=== PATIENT | female | born 1980 | race Caucasian/White ===

== ENCOUNTER 2022-06-02 17:28 | Emergency (ER) | payer MEDICAID, SELFPAY ==
--- NOTE | ~2022-06-02 | XR_ITS ---
EXAMINATION: XR CHEST CLINICAL INFORMATION: Shortness of breath. COMPARISON: None TECHNIQUE: 2 views of the chest were obtained. FINDINGS: Normal appearance of the cardiomediastinal silhouette. Focal patchy airspace opacities in the right lower lobe. No pleural effusion or pneumothorax. No acute osseous abnormalities. XR/XR chest 2V IMPRESSION: Patchy airspace opacities in the right lower lobe concerning for a focal pneumonia in the appropriate clinical context. Recommend a follow-up imaging after treatment.
[2022-06-02 18:26] VITALS: BP 115/70; PULSE 117; RESP 18; TEMP 36.8; O2SAT 97; BMI 19.6
--- NOTE | 2022-06-02 18:26 | ED_ITS ---
HPI - Chest Pain General Chief Complaint: Dyspnea Stated Complaint: Chest pressure/ SOB Time Seen by Provider: 06/02/22 21:53 Related Data Previous Rx's Medication Instructions Recorded levofloxacin 750 mg tablet 750 mg PO DAILY #7 tabs 06/02/22 Allergies Allergy/AdvReac Type Severity Reaction Status Date / Time No Known Allergies Allergy Verified 06/02/22 18:28 [facility] Social History Social History Advance Directives: No Physical Exam Vital Signs: Vital Signs: Last Vital Signs Temp 98.3 F 06/02/22 23:11 Pulse 109 H 06/02/22 23:11 Resp 18 06/02/22 23:11 BP 129/78 06/02/22 23:11 Pulse Ox 100 06/02/22 23:11 O2 Del Method 06/02/22 23:11 BMI result Body Mass Index 19.6 Course Course Course Narrative: RME-- 41yo F with no significant past medical history c/o dry cough x2 weeks now with worsening SOB since yesterday. Admits cough has resolved now with still with residual SOB/chest discomfort. Admits chest discomfort worse with breathing and movement. Denies history of clots, recent travel, oral OCPs, cigarette smoking, fever Patient tachycardic to 117 in triage, Lungs CTA on exam, patient taking shallow breaths secondary to pain. Tenderness is reproducible to right lower ribs, abd omen soft and nontender EKG, labs, CXR, COVID-19/flu/RSV testing ordered Medications Administered Discontinued Medications Generic Name Dose Route Start Last Admin Trade Name Cristóbal PRN Reason Stop Dose Admin Levofloxacin 750 mg 06/02/22 22:33 06/02/22 23:36 Levofloxacin 750 Mg Tablet PO 06/02/22 22:34 750 mg ONCE ONE Administration Medical Decision Making Lab Data Result Diagrams: 06/02/22 18:51 06/02/22 18:52 Labs: Lab Results 06/02/22 06/02/22 06/02/22 Range/Units 18:51 18:51 18:51 WBC 20.2 H (4.8-10.8) X10*3/uL RBC 4.38 (4.20-5.50) X10*6/uL Hgb 12.1 (12.0-16.0) g/dl Hct 36.1 L (37.0-47.0) % MCV 82.4 (80.0-98.0) fL MCH 27.6 (27.0-33.0) pg MCHC 33.5 (31.0-35.0) g/dl RDW 12.3 (11.0-16.0) % Plt Count 420 H (160-400) X10*3/uL MPV 10.0 (9.4-12.3) fL Immature Gran % (Auto) 0.4 (0.0-0.4) % Neut % (Auto) 88.0 H (45-73) % Lymph % (Auto) 6.3 L (20-40) % [place] % (Auto) 5.1 (2-11) % Eos % (Auto) 0.0 (0-4) % Baso % (Auto) 0.2 (0-2) % Lymph # (Auto) 1.3 (1.2-4.9) X10*3/uL [place] # (Auto) 1.0 (0.1-1.2) X10*3/uL Eos # (Auto) 0.0 (0.0-0.4) X10*3/uL Baso # (Auto) 0.0 (0.0-0.2) X10*3/uL Abs Immat Gran (auto) 0.08 H (0.00-0.03) X10*3/uL Absolute Neuts (auto) 17.8 H (2.0-8.3) x10*3/uL Absolute Nucleated RBC 0.000 (0.0-0.012) X10*3/uL Nucleated RBC % (auto) 0.0 (0.0-0.2) /100WBC PT 12.5 (10.0-13.1) SEC INR 1.1 (0.9-1.1) D-Dimer High Sensitivty 177 NG/ML Sodium (135-145) mmol/L Potassium (3.3-5.1) mmol/L Chloride (96-108) mmol/L Carbon Dioxide (22-29) mmol/L Anion Gap (12-20) BUN (9-16) mg/dL Creatinine (0.5-1.4) mg/dL Estim Creat Clear Calc Estimated GFR Random Glucose (60-115) mg/dL Calcium (8.4-10.2) mg/dL Magnesium (1.6-2.6) mg/dL Total Bilirubin (0.0-1.0) mg/dL Direct Bilirubin (0.0-0.5) mg/dL AST (5-31) U/L ALT (0-31) U/L Alkaline Phosphatase (39-117) U/L Troponin I High Sens < 3.5 (<3.5-17.0) ng/L B-Natriuretic Peptide (<100) pg/mL Total Protein (6.5-8.0) g/dL Albumin (3.5-5.0) g/dL Influenza Type A (PCR) (Negative) Influenza Type B (PCR) (Negative) RSV RNA Qual (PCR) (Negative) SARS-CoV-2 RNA (RT-PCR) (Negative) 06/02/22 06/02/22 06/02/22 Range/Units 18:51 18:52 18:52 WBC (4.8-10.8) X10*3/uL RBC (4.20-5.50) X10*6/uL Hgb (12.0-16.0) g/dl Hct (37.0-47.0) % MCV (80.0-98.0) fL MCH (27.0-33.0) pg MCHC (31.0-35.0) g/dl RDW (11.0-16.0) % Plt Count (160-400) X10*3/uL MPV (9.4-12.3) fL Immature Gran % (Auto) (0.0-0.4) % Neut % (Auto) (45-73) % Lymph % (Auto) (20-40) % [place] % (Auto) (2-11) % Eos % (Auto) (0-4) % Baso % (Auto) (0-2) % Lymph # (Auto) (1.2-4.9) X10*3/uL [place] # (Auto) (0.1-1.2) X10*3/uL Eos # (Auto) (0.0-0.4) X10*3/uL Baso # (Auto) (0.0-0.2) X10*3/uL Abs Immat Gran (auto) (0.00-0.03) X10*3/uL Absolute Neuts (auto) (2.0-8.3) x10*3/uL Absolute Nucleated RBC (0.0-0.012) X10*3/uL Nucleated RBC % (auto) (0.0-0.2) /100WBC PT (10.0-13.1) SEC INR (0.9-1.1) D-Dimer High Sensitivty NG/ML Sodium 136 (135-145) mmol/L Potassium 4.0 (3.3-5.1) mmol/L Chloride 102 (96-108) mmol/L Carbon Dioxide 26 (22-29) mmol/L Anion Gap 12 (12-20) BUN 14 (9-16) mg/dL Creatinine 0.69 (0.5-1.4) mg/dL Estim Creat Clear Calc 87.1 Estimated GFR > 60 Random Glucose 117 H (60-115) mg/dL Calcium 9.3 (8.4-10.2) mg/dL Magnesium 1.9 (1.6-2.6) mg/dL Total Bilirubin 1.0 (0.0-1.0) mg/dL Direct Bilirubin 0.3 (0.0-0.5) mg/dL AST 15 (5-31) U/L ALT 11 (0-31) U/L Alkaline Phosphatase 74 (39-117) U/L Troponin I High Sens (<3.5-17.0) ng/L B-Natriuretic Peptide 12 (<100) pg/mL Total Protein 7.1 (6.5-8.0) g/dL Albumin 4.5 (3.5-5.0) g/dL Influenza Type A (PCR) NEGATIVE (Negative) Influenza Type B (PCR) NEGATIVE (Negative) RSV RNA Qual (PCR) NEGATIVE (Negative) SARS-CoV-2 RNA (RT-PCR) NEGATIVE (Negative) Discharge Plan Discharge Clinical Impression: Community acquired pneumonia Patient Disposition: Home, Self-Care Instructions: Community Acquired Pneumonia (ED) Prescriptions: New levofloxacin 750 mg tablet 750 mg PO DAILY Qty: 7 0RF Stand Alone Forms: Work/School Release Interventions: ED Discharge Assessment Last Done: 06/02/22 23:38 Discharge Date/Time: 06/02/22 23:39
--- NOTE | 2022-06-02 18:28 | ECG_ITS ---
Test Reason : CHEST PRESSURE Blood Pressure : / mmHG Vent. Rate : 113 BPM Atrial Rate : 113 BPM P-R Int : 144 ms QRS Dur : 076 ms QT Int : 320 ms P-R-T Axes : 063 065 -03 degrees QTc Int : 438 ms Sinus tachycardia Nonspecific ST and T wave abnormality Abnormal ECG No previous ECGs available Referred By: Miya Jacobo Electronically Signed By:ROLF GARCIA
[2022-06-02 18:56] LABS: MANUAL DIFF FLAG NO
[2022-06-02 18:58] LABS: Basophils Percent Auto 0.2 % (0-2); Hematocrit 36.1 % (37.0-47.0); Hemoglobin 12.1 g/dl (12.0-16.0); Imm Gran Abs Auto 0.08 X10*3/uL (0.00-0.03); Imm Gran Pct Auto 0.4 % (0.0-0.4); Lymphocytes Absolute Auto 1.3 X10*3/uL (1.2-4.9); Lymphocytes Percent Auto 6.3 % (20-40); Mean Corpuscular HGB Conc 33.5 g/dl (31.0-35.0); Mean Corpuscular Hemoglobin 27.6 pg (27.0-33.0); Mean Corpuscular Volume 82.4 fL (80.0-98.0); Monocytes Percent Auto 5.1 % (2-11); Neutrophils Absolute Auto 17.8 x10*3/uL (2.0-8.3); Platelet Count 420 X10*3/uL (160-400); Red Blood Count 4.38 X10*6/uL (4.20-5.50); Red Cell Distribution Width 12.3 % (11.0-16.0); White Blood Count 20.2 X10*3/uL (4.8-10.8)
[2022-06-02 19:03] LABS: INTERNATIONAL NORM RATIO 1.1 (0.9-1.1); Prothrombin Time 12.5 SEC (10.0-13.1)
[2022-06-02 19:04] LABS: D Dimer High Sensitivity 177 NG/ML
[2022-06-02 19:15] LABS: Alanine Aminotransferase 11 U/L (0-31); Albumin Level 4.5 g/dL (3.5-5.0); Alkaline Phosphatase 74 U/L (39-117); Anion Gap 12 (12-20); Aspartate Amino Transferase 15 U/L (5-31); Bilirubin Direct 0.3 mg/dL (0.0-0.5); Blood Urea Nitrogen 14 mg/dL (9-16); Calcium 9.3 mg/dL (8.4-10.2); Carbon Dioxide 26 mmol/L (22-29); Chloride 102 mmol/L (96-108); Creatinine Clr Calc Pharmacy 87.1; Estimated Glomerular Filt Rate > 60; Glucose Random 117 mg/dL (60-115); Magnesium 1.9 mg/dL (1.6-2.6); Sodium 136 mmol/L (135-145); Total Protein 7.1 g/dL (6.5-8.0)
[2022-06-02 19:20] LABS: B Type Natriuretic Peptide 12 pg/mL (<100)
[2022-06-02 19:24] LABS: Troponin-I High Sensitivity < 3.5 ng/L (<3.5-17.0)
[2022-06-02 19:35] LABS: Influenza A PCR NEGATIVE (Negative); Influenza B PCR NEGATIVE (Negative); Resp Syncy Virus RNA Qual PCR NEGATIVE (Negative); SARS COV2 PCR INHOUSE NEGATIVE (Negative)
--- NOTE | 2022-06-02 22:20 | ED.SOB ---
HPI - SOB/Dyspnea General Chief Complaint: Dyspnea Stated Complaint: Chest pressure/ SOB Time Seen by Provider: 06/02/22 21:53 Source: patient Mode of arrival: ambulatory Limitations: no limitations History of Present Illness HPI Narrative: 41-year-old female came in for evaluation of coughing and right-sided chest pain for the past 2 weeks the pain is getting worse today, coughing with production of clear sputum, no fever or chills, right-sided chest pain which worsening with taking a deep breath or coughing. No recent travel or prolonged expiration, no history of PE or DVT, no history of chest wall injury or trauma. Related Data Previous Rx's Medication Instructions Recorded levofloxacin 750 mg tablet 750 mg PO DAILY #7 tabs 06/02/22 Allergies Allergy/AdvReac Type Severity Reaction Status Date / Time No Known Allergies Allergy Verified 06/02/22 18:28 Review of Systems Review of Systems: All other systems are reviewed and are negative Constitutional: Reports as per HPI and Reports no additional constitutional complaints Eyes: Reports as per HPI and Reports no additional eye complaints Reports system reviewed and no additional complaints, except as documented Cardiovascular: Reports as per HPI and Reports no additional cardiovascular complaints Respiratory: Reports as per HPI and Reports no additional respiratory complaints Gastrointestinal: Reports as per HPI and Reports no additional gastrointestinal complaints Genitourinary: Reports no additional female genitourinary complaints Musculoskeletal: Reports no additional musculoskeletal complaints Skin/Breast: Reports system reviewed and no additional complaints, except as docu Psychiatric: Reports no additional psychiatric complaints Endocrine: Reports no additional endocrine complaints Hematologic/Lymphatic: Reports no additional hematologic/lymphatic complaints Allergic/Immunologic: Reports no additional allergic/immunologic complaints Reports system reviewed and no additional complaints, except as documented and Reports Abnormal speech present ON LICENSE OF [facility] Social History Social History Advance Directives: No Physical Exam Vital Signs: Vital Signs: Last Vital Signs Temp 98.3 F 06/02/22 23:11 Pulse 109 H 06/02/22 23:11 Resp 18 06/02/22 23:11 BP 129/78 06/02/22 23:11 Pulse Ox 100 06/02/22 23:11 O2 Del Method 06/02/22 23:11 BMI result Body Mass Index 19.6 Vital signs have been reviewed as appeared to be correct. Blood pressure normal. Heart rate elevated. Respiration rate normal. Temperature normal. Oxygen saturation normal. Appearance: Alert. Oriented X3. No acute distress. Head: Normal external exam. Normocephalic. Atraumatic. No [place] signs noted. No raccoon eyes noted Eyes: PERRLA. EOMI. Conjunctiva and sclera normal. Eyelids normal. ENT: TM's Normal. Pharynx normal. Uvula midline. Moist mucous membranes. No trismus noted. No drooling noted. No muffled voice noted. Neck: Normal inspection. Neck supple. FROM. No adenopathy. Thyroid Normal. No meningeal signs. No neck mass noted. CVS: Normal heart rate and rhythm. Heart sound normal. No murmurs noted. Pulses normal throughout. Respiratory: Decreased breathing sound on the right upper lung field, was crackers in the right upper lungs. Abdomen: Soft and nontender. Bowel sounds normal in all 4 quadrants. No distention noted. No organomegaly noted. No visible injury noted. Back: No CVA tenderness. Full range of motion noted. Skin: Skin warm and dry. Normal skin color. Normal skin turgor. No rashes/lesions/lacerations noted. Extremities: No lower extremity edema. Extremities exhibit normal range of motion. Extremities nontender. Neuro: Oriented X 3. Cranial nerve exam: II-XII are grossly intact No motor deficit. No sensory deficit. Reflexes normal. Course Course Course Narrative: 41-year-old female came in with right-sided chest pain and coughing, chest x-ray is consistent with community-acquired pneumonia, patient is tachycardic and has leukocytosis however patient refused to be stock for lactic acid and blood culture patient is insisting to take the oral antibiotic and declining IV antibiotic since she feels okay. Medical Decision Making Differential Diagnosis Differential Diagnoses: The differential diagnosis associated with the presentation includes (RSV, influenza, COVID-19 infection, community-acquired pneumonia, sepsis, severe sepsis.) Lab Data MDM Lab Attestation statement: I reviewed the patient's lab results. Result Diagrams: 06/02/22 18:51 06/02/22 18:52 Labs: Lab Results 06/02/22 06/02/22 06/02/22 Range/Units 18:51 18:51 18:51 WBC 20.2 H (4.8-10.8) X10*3/uL RBC 4.38 (4.20-5.50) X10*6/uL Hgb 12.1 (12.0-16.0) g/dl Hct 36.1 L (37.0-47.0) % MCV 82.4 (80.0-98.0) fL MCH 27.6 (27.0-33.0) pg MCHC 33.5 (31.0-35.0) g/dl RDW 12.3 (11.0-16.0) % Plt Count 420 H (160-400) X10*3/uL MPV 10.0 (9.4-12.3) fL Immature Gran % (Auto) 0.4 (0.0-0.4) % Neut % (Auto) 88.0 H (45-73) % Lymph % (Auto) 6.3 L (20-40) % [place] % (Auto) 5.1 (2-11) % Eos % (Auto) 0.0 (0-4) % Baso % (Auto) 0.2 (0-2) % Lymph # (Auto) 1.3 (1.2-4.9) X10*3/uL [place] # (Auto) 1.0 (0.1-1.2) X10*3/uL Eos # (Auto) 0.0 (0.0-0.4) X10*3/uL Baso # (Auto) 0.0 (0.0-0.2) X10*3/uL Abs Immat Gran (auto) 0.08 H (0.00-0.03) X10*3/uL Absolute Neuts (auto) 17.8 H (2.0-8.3) x10*3/uL Absolute Nucleated RBC 0.000 (0.0-0.012) X10*3/uL Nucleated RBC % (auto) 0.0 (0.0-0.2) /100WBC PT 12.5 (10.0-13.1) SEC INR 1.1 (0.9-1.1) D-Dimer High Sensitivty 177 NG/ML Sodium (135-145) mmol/L Potassium (3.3-5.1) mmol/L Chloride (96-108) mmol/L Carbon Dioxide (22-29) mmol/L Anion Gap (12-20) BUN (9-16) mg/dL Creatinine (0.5-1.4) mg/dL Estim Creat Clear Calc Estimated GFR Random Glucose (60-115) mg/dL Calcium (8.4-10.2) mg/dL Magnesium (1.6-2.6) mg/dL Total Bilirubin (0.0-1.0) mg/dL Direct Bilirubin (0.0-0.5) mg/dL AST (5-31) U/L ALT (0-31) U/L Alkaline Phosphatase (39-117) U/L Troponin I High Sens < 3.5 (<3.5-17.0) ng/L B-Natriuretic Peptide (<100) pg/mL Total Protein (6.5-8.0) g/dL Albumin (3.5-5.0) g/dL Influenza Type A (PCR) (Negative) Influenza Type B (PCR) (Negative) RSV RNA Qual (PCR) (Negative) SARS-CoV-2 RNA (RT-PCR) (Negative) 06/02/22 06/02/22 06/02/22 Range/Units 18:51 18:52 18:52 WBC (4.8-10.8) X10*3/uL RBC (4.20-5.50) X10*6/uL Hgb (12.0-16.0) g/dl Hct (37.0-47.0) % MCV (80.0-98.0) fL MCH (27.0-33.0) pg MCHC (31.0-35.0) g/dl RDW (11.0-16.0) % Plt Count (160-400) X10*3/uL MPV (9.4-12.3) fL Immature Gran % (Auto) (0.0-0.4) % Neut % (Auto) (45-73) % Lymph % (Auto) (20-40) % [place] % (Auto) (2-11) % Eos % (Auto) (0-4) % Baso % (Auto) (0-2) % Lymph # (Auto) (1.2-4.9) X10*3/uL [place] # (Auto) (0.1-1.2) X10*3/uL Eos # (Auto) (0.0-0.4) X10*3/uL Baso # (Auto) (0.0-0.2) X10*3/uL Abs Immat Gran (auto) (0.00-0.03) X10*3/uL Absolute Neuts (auto) (2.0-8.3) x10*3/uL Absolute Nucleated RBC (0.0-0.012) X10*3/uL Nucleated RBC % (auto) (0.0-0.2) /100WBC PT (10.0-13.1) SEC INR (0.9-1.1) D-Dimer High Sensitivty NG/ML Sodium 136 (135-145) mmol/L Potassium 4.0 (3.3-5.1) mmol/L Chloride 102 (96-108) mmol/L Carbon Dioxide 26 (22-29) mmol/L Anion Gap 12 (12-20) BUN 14 (9-16) mg/dL Creatinine 0.69 (0.5-1.4) mg/dL Estim Creat Clear Calc 87.1 Estimated GFR > 60 Random Glucose 117 H (60-115) mg/dL Calcium 9.3 (8.4-10.2) mg/dL Magnesium 1.9 (1.6-2.6) mg/dL Total Bilirubin 1.0 (0.0-1.0) mg/dL Direct Bilirubin 0.3 (0.0-0.5) mg/dL AST 15 (5-31) U/L ALT 11 (0-31) U/L Alkaline Phosphatase 74 (39-117) U/L Troponin I High Sens (<3.5-17.0) ng/L B-Natriuretic Peptide 12 (<100) pg/mL Total Protein 7.1 (6.5-8.0) g/dL Albumin 4.5 (3.5-5.0) g/dL Influenza Type A (PCR) NEGATIVE (Negative) Influenza Type B (PCR) NEGATIVE (Negative) RSV RNA Qual (PCR) NEGATIVE (Negative) SARS-CoV-2 RNA (RT-PCR) NEGATIVE (Negative) Independent Interpretation I performed an independent interpretation of an: Plain X-Ray (Right lower lobe pneumonia) Radiology Impression Discussion of test interpretation with radiology: I have reviewed the radiologist's reading. Discharge Plan Discharge Clinical Impression: Community acquired pneumonia Patient Disposition: Home, Self-Care Instructions: Community Acquired Pneumonia (ED) Prescriptions: New levofloxacin 750 mg tablet 750 mg PO DAILY Qty: 7 0RF Stand Alone Forms: Work/School Release
[2022-06-02 23:11] VITALS: BP 129/78; PULSE 109; RESP 18; TEMP 36.8; O2SAT 100
[2022-06-02] MEDS: levoFLOXacin 750 MG TABLET PO (23:36)
== END 2022-06-02 23:39 | disposition home or self-care (01) ==
PROVIDERS: Physician Assistant; Emergency Provider Emergency Medicine
DX: J18.9 Pneumonia, unspecified organism (principal); R06.02 Shortness of breath; Z20.828 Contact with and (suspected) exposure to other viral communicable diseases
CPT/HCPCS: 0241U; 36415; 71046; 80048; 80076; 83735; 83880; 84484; 85025; 85379; 85610; 93005; 99283; 99284

== ENCOUNTER 2022-08-13 13:13 | Emergency (ER) | payer MEDICAID, SELFPAY ==
--- NOTE | ~2022-08-13 | XR_ITS ---
EXAMINATION: XR CHEST CLINICAL INFORMATION: Fall COMPARISON: 06/02/2022 TECHNIQUE: 2 views of the chest were obtained. FINDINGS: The lungs are well expanded. There is increased right middle lobe consolidation. No pleural effusion or pneumothorax. The cardiomediastinal silhouette is normal in size. No acute osseous abnormality. XR/XR chest 2V IMPRESSION: Increased right middle lobe consolidation which could represent atelectasis or pneumonia.
[2022-08-13 13:19] VITALS: BP 106/86; PULSE 122; RESP 20; TEMP 37.2; BMI 19.6
--- NOTE | 2022-08-13 13:19 | ED_ITS ---
HPI - Chest Pain General Chief Complaint: Upper Respiratory Symptoms <PAIGE Rodriguez - Last Filed: 08/13/22 13:25> Stated Complaint: R lung pain <PAIGE Rodriguez - Last Filed: 08/13/22 13:25> Time Seen by Provider: 08/13/22 15:51 <PAIGE Rodriguez - Last Filed: 08/13/22 13:25> Source: patient <PAIGE Dumont Last Filed: 08/13/22 17:11> Mode of arrival: ambulatory <PAIGE Dumont - Last Filed: 08/13/22 17:11> Limitations: no limitations <PAIGE Dumont Last Filed: 08/13/22 17:11> History of Present Illness HPI narrative: Patient is a 41 year old assigned female at with no reported medical history presenting to the emergency department today with right sided chest pain. Patient states that the last time she had this type of pain and cough, she was diagnosed with pneumonia. Patient denies any dizziness, lightheadedness, abdominal pain, nausea, vomiting, fever, chills, blurry vision, double vision, loss of vision, difficulty breathing, shortness of breath, back pain, night sweats, pain with urination, increased urinary frequency, increased urinary urgency, blood in her urine or stool, syncope or a near syncopal episode, recent trauma or falls, bowel incontinence, bladder incontinence, bowel retention, bladder retention, or any other complaints at this time. <PAIGE Dumont - Last Filed: 08/13/22 17:11> MD complaint: chest pain <PAIGE Dumont - Last Filed: 08/13/22 17:11> Prior episodes: Yes <PAIGE Dumont Last Filed: 08/13/22 17:11> Pain radiation: none <PAIGE Dumont Last Filed: 08/13/22 17:11> Severity: mild <PAIGE Dumont Last Filed: 08/13/22 17:11> Pain scale (0-10): 3 <PAIGE Dumont Last Filed: 08/13/22 17:11> Relieving factors: nothing <PAIGE Dumont - Last Filed: 08/13/22 17:11> Exacerbating factors: nothing <PAIGE Dumont Last Filed: 08/13/22 17:11> Associated symptoms: cough <PAIGE Dumont Last Filed: 08/13/22 17:11> Treatment prior to arrival: none <PAIGE Dumont Last Filed: 08/13/22 17:11> Related Data Home Medications: Previous Rx's Medication Instructions Recorded levofloxacin 750 mg tablet 750 mg PO DAILY #7 tabs 06/02/22 levofloxacin 750 mg tablet 750 mg PO DAILY 7 days #7 tabs 08/13/22 <PAIGE Rodriguez Last Filed: 08/13/22 13:25> Allergies/Adverse Reactions: Allergies Allergy/AdvReac Type Severity Reaction Status Date / Time No Known Allergies Allergy Verified 08/13/22 13:24 <PAIGE Rodriguez Last Filed: 08/13/22 13:25> Review of Systems Constitutional: Constitutional: Reports no additional constitutional complai nts, Denies chills, Denies fever(s) and Denies night sweats <PAIGE Dumont Last Filed: 08/13/22 17:11> Eyes: Eyes: Reports no additional eye complaints, Denies blurry vision, Denies change in vision, Denies diplopia, Denies eye discharge, Denies loss of vision and Denies eye pain <PAIGE Dumont Last Filed: 08/13/22 17:11> ENT: Denies dizziness <PAIGE Dumont Last Filed: 08/13/22 17:11> Cardiovascular: Cardiovascular: Reports no additional cardiovascular complaints, Reports chest pain (right sided), Denies lightheadedness, Denies Loss of Consciousness and Denies dyspnea <PAIGE Dumont Last Filed: 08/13/22 17:11> Respiratory: Respiratory: Reports no additional respiratory complaints, Reports cough and Denies dyspnea <PAIGE Dumont Last Filed: 08/13/22 17:11> Gastrointestinal: Gastrointestinal: Reports no additional gastrointestinal complaints, Denies abdominal pain, Denies melena, Denies hematochezia, Denies change in bowel habits and Denies change in stool character <PAIGE Dumont Last Filed: 08/13/22 17:11> Genitourinary: Genitourinary: Denies hematuria, Denies urinary frequency, Denies dysuria, Denies urinary incontinence, Denies urinary hesitancy and Denies urinary urgency <PAIGE Dumont - Last Filed: 08/13/22 17:11> Musculoskeletal: Musculoskeletal: Reports no additional musculoskeletal complaints, Denies numbness and Denies tingling <PAIGE Dumont - Last Filed: 08/13/22 17:11> Neurologic: Denies dizziness, Denies loss of vision, Denies numbness and Denies tingling <PAIGE Dumont - Last Filed: 08/13/22 17:11> Psychiatric: Psychiatric: Reports no additional psychiatric complaints <PAIGE Dumont - Last Filed: 08/13/22 17:11> Endocrine: Endocrine: Reports no additional endocrine complaints <PAIGE Dumont - Last Filed: 08/13/22 17:11> Hematologic/Lymphatic: Hematologic/Lymphatic: Reports no additional hematologic/lymphatic complaints <PAIGE Dumont - Last Filed: 08/13/22 17:11> Allergic/Immunologic: Allergic/Immunologic: Reports no additional greg rgic/immunologic complaints <PAIGE Dumont - Last Filed: 08/13/22 17:11> PMF Past Medical History Attestation statement: The following information was validated with the patient. <PAIGE Dumont - Last Filed: 08/13/22 17:11> Source: old records reviewed and nursing notes reviewed <PAIGE Dumont - Last Filed: 08/13/22 17:11> Social History Social History: Social History Alcohol intake: former Smoked in Last 30 Days: No Use of substances other than those prescribed or required for medical reasons: No Advance Directives: No Advance Directives Information Provided: No Patient : No <PAIGE Rodriguez - Last Filed: 08/13/22 13:25> Physical Exam Vital Signs: Vital Signs: Last Vital Signs Temp 99.2 F 08/13/22 15:43 Pulse 98 08/13/22 15:43 Resp 16 08/13/22 15:43 BP 105/71 08/13/22 15:43 Pulse Ox 99 08/13/22 15:44 O2 Del Method 08/13/22 15:44 BMI result Body Mass Index 19.6 <PAIGE Rodriguez - Last Filed: 08/13/22 13:25> Vital Signs: Last Vital Signs Temp 99.2 F 08/13/22 15:43 Pulse 98 08/13/22 15:43 Resp 16 08/13/22 15:43 BP 105/71 08/13/22 15:43 Pulse Ox 99 08/13/22 15:44 O2 Del Method 08/13/22 15:44 BMI result Body Mass Index 19.6 <PAIGE Dumont - Last Filed: 08/13/22 17:11> Const: General: cooperative, no acute distress, alert and awake <PAIGE Dumont - Last Filed: 08/13/22 17:11> Nutritional Appearance: well nourished <PAIGE Dumont - Last Filed: 08/13/22 17:11> Orientation/consciousness: patient oriented x3 <PAIGE Dumont - Last Filed: 08/13/22 17:11> Limitations: no limitations <PAIGE Dumont - Last Filed: 08/13/22 17:11> HEENT: Head: Yes normal to inspection and Yes atraumatic <PAIGE Dumont - Last Filed: 08/13/22 17:11> Ears: hearing grossly normal bilaterally and external ears normal <PAIGE Dumont - Last Filed: 08/13/22 17:11> General nose exam: Normal external nose present, no nasal discharge noted and no epistaxis <PAIGE Dumont - Last Filed: 08/13/22 17:11> Face and sinus: Yes normal facial exam, No abrasion and No laceration <PAIGE Dumont - Last Filed: 08/13/22 17:11> Mouth: Normal oral and palatal mucosa present, no drooling and no muffled voice <PAIGE Dumont - Last Filed: 08/13/22 17:11> Eyes: General: appearance normal, both eyes and all related structures <PAIGE Dumont - Last Filed: 08/13/22 17:11> Periorbital: periorbital findings normal <PAIGE Dumont - Last Filed: 08/13/22 17:11> Eyelids: Yes eyelids normal <Anali Ho PA - Last Filed: 08/13/22 17:11> Conjunctivae: conjunctivae normal <Anali Ho, PA - Last Filed: 08/13/22 17:11> Pupils: Equal, round and reactive pupils present <Anali Ho PA - Last Filed: 08/13/22 17:11> EOM: EOMs intact bilaterally <Anali Ho PA - Last Filed: 08/13/22 17:11> Neck: Neck: Yes normal visual inspection, Yes full ROM and Yes no lymphad enopathy <Anali Ho PA - Last Filed: 08/13/22 17:11> Chest: Chest palpation & inspection: normal inspection of the chest <Anali Ho PA - Last Filed: 08/13/22 17:11> Resp: Effort & Inspection: normal respiratory effort and able to speak in complete sentences <Anali Ho PA - Last Filed: 08/13/22 17:11> Auscultation: clear to auscultation bilaterally <Anali Ho PA - Last Filed: 08/13/22 17:11> Cardio: Rate: regular rate <Anali Ho PA - Last Filed: 08/13/22 17:11> Rhythm: regular rhythm <Anali Ho PA - Last Filed: 08/13/22 17:11> GI: Inspection: Yes normal to inspection <Anali Ho PA - Last Lazaro ed: 08/13/22 17:11> Palpation (GI): Soft to palpation, not firm, nontender and no guarding <Anali Ho, PA - Last Filed: 08/13/22 17:11> Neuro: General: patient oriented x3 and moves all extremities <Anali Estradamatt PA - Last Filed: 08/13/22 17:11> Cranial nerves: Yes Equal, round and reactive pupils present <Anali Ho PA - Last Filed: 08/13/22 17:11> Cognition (Neuro): normal cognition <Anali Estradamatt PA - Last Filed: 08/13/22 17:11> Motor exam (neuro): 5/5 motor strength present throughout <PAIGE Dumont - Last Filed: 08/13/22 17:11> Sensory Exam: Normal double simultaneous stimulation for sensation <PAIGE Dumont - Last Filed: 08/13/22 17:11> Coordination: [id number] test normal <PAIGE Dumont - Last Filed: 08/13/22 17:11> Extrem: General: Yes normal to inspection, Yes full ROM and Yes capillary refill normal <PAIGE Dumont - Last Filed: 08/13/22 17:11> Psych: Appearance: grossly normal <PAIGE Dumont - Last Filed: 08/13/22 17:11> Mental Status: mental status grossly normal <PAIGE Dumont - Last Filed: 08/13/22 17:11> Affect: normal affect <PAIGE Dumont - Last Filed: 08/13/22 17:11> Attitude: cooperative <PAIGE Dumont - Last Filed: 08/13/22 17:11> Thought process: Normal thought process present <PAIGE Dumont - Last Filed: 08/13/22 17:11> Thought content: Normal thought content present <PAIGE Dumont - Last Filed: 08/13/22 17:11> Insight: Good insight present (Psych) <PAIGE Dumont - Last Filed: 08/13/22 17:11> Course Course Course Narrative: RME--41yo F with past medical history CAP Dx in May presenting to the ED c/o recurrent dry cough and R upper chest wall pain x2 days. Admits to assoc nausea & pain worse with deep breathing. Denies SOB, recent travel, hx clots, smoking Tachycardic to 120s in triage EKG, Labs, CXR, SARS/FLU/RSV, Lactic/Blood Cx ordered <PAIGE Rodriguez - Last Filed: 08/13/22 13:25> Medications Administered Generic Name Dose Route Start Last Admin Trade Name Freq PRN Reason Stop Dose Admin Levofloxacin 750 mg in 150 mls @ 100 mls/hr 08/13/22 15:58 08/13/22 16:18 Levaquin IV 08/13/22 17:27 100 mls/hr ONCE ONE Administration Discontinued Medications Generic Name Dose Route Start Last Admin Trade Name Freq PRN Reason Stop Dose Admin Acetaminophen 650 mg 08/13/22 15:58 08/13/22 16:18 Acetaminophen 325 Mg Tablet PO 08/13/22 15:59 650 mg ONCE ONE Administration <PAIGE Rodriguez - Last Filed: 08/13/22 13:25> Medications Administered Generic Name Dose Route Start Last Admin Trade Name Freq PRN Reason Stop Dose Admin Levofloxacin 750 mg in 150 mls @ 100 mls/hr 08/13/22 15:58 08/13/22 16:18 Levaquin IV 08/13/22 17:27 100 mls/hr ONCE ONE Administration Discontinued Medications Generic Name Dose Route Start Last Admin Trade Name Freq PRN Reason Stop Dose Admin Acetaminophen 650 mg 08/13/22 15:58 08/13/22 16:18 Acetaminophen 325 Mg Tablet PO 08/13/22 15:59 650 mg ONCE ONE Administration <PAIGE Dumont - Last Filed: 08/13/22 17:11> Medical Decision Making Medical Decision Making MDM Narrative: Patient is a 41 year old assigned female at with no reported medical history presenting to the emergency department today with right sided upper chest pain and a cough. Patient's physical exam was unremarkable. Patient's blood work showed an elevated WBC count of 17. Patient's EKG was unremarkable. Patient's chest x-ray showed right middle lobe consolidation. Patient is not septic (@1558). I explained my physical exam findings as well as all test results to the patient. I answered all questions asked by the patient. I stressed the importance of the patient taking her medication as prescribed. I stressed the importance of the patient following up with her primary care provider. I stressed the importance of the patient returning to the emergency department immediately if her symptoms were to worsen or if she were to develop any dizziness, shortness of breath, difficulty breathing, chest pain, blurry vision, loss of vision, nausea, vomiting, abdominal pain, fever, chills, back pain, or any other complaints. Patient verbalized agreement and understanding with this treatment plan and discharge. <PAIGE Dumont - Last Filed: 08/13/22 17:11> Differential Diagnosis Differential Diagnoses: The differential diagnosis associated with the presentation includes <PAIGE Dumont - Last Filed: 08/13/22 17:11> pneumonia <PAIGE Dumont - Last Filed: 08/13/22 17:11> Lab Data MDM Lab Attestation statement: I reviewed the patient's lab results. <PAIGE Dumont - Last Filed: 08/13/22 17:11> Result Diagrams: 08/13/22 13:53 08/13/22 13:53 <PAIGE Rodriguez - Last Filed: 08/13/22 13:25> Labs: Lab Results 08/13/22 08/13/22 08/13/22 Range/Units 13:53 13:53 13:53 WBC 17.0 H (4.8-10.8) X10*3/uL RBC 4.44 (4.20-5.50) X10*6/uL Hgb 12.1 (12.0-16.0) g/dl Hct 36.7 L (37.0-47.0) % MCV 82.7 (80.0-98.0) fL MCH 27.3 (27.0-33.0) pg MCHC 33.0 (31.0-35.0) g/dl RDW 12.3 (11.0-16.0) % Plt Count 437 H (160-400) X10*3/uL MPV 10.0 (9.4-12.3) fL Immature Gran % (Auto) 0.4 (0.0-0.4) % Neut % (Auto) 83.1 H (45-73) % Lymph % (Auto) 8.8 L (20-40) % [place] % (Auto) 7.4 (2-11) % Eos % (Auto) 0.1 (0-4) % Baso % (Auto) 0.2 (0-2) % Lymph # (Auto) 1.5 (1.2-4.9) X10*3/uL [place] # (Auto) 1.3 H (0.1-1.2) X10*3/uL Eos # (Auto) 0.0 (0.0-0.4) X10*3/uL Baso # (Auto) 0.0 (0.0-0.2) X10*3/uL Abs Immat Gran (auto) 0.07 H (0.00-0.03) X10*3/uL Absolute Neuts (auto) 14.1 H (2.0-8.3) x10*3/uL Absolute Nucleated RBC 0.000 (0.0-0.012) X10*3/uL Nucleated RBC % (auto) 0.0 (0.0-0.2) /100WBC Sodium 136 (135-145) mmol/L Potassium 3.7 (3.3-5.1) mmol/L Chloride 100 (96-108) mmol/L Carbon Dioxide 28 (22-29) mmol/L Anion Gap 12 (12-20) BUN 10 (9-16) mg/dL Creatinine 0.65 (0.5-1.4) mg/dL Estim Creat Clear Calc 92.5 Estimated GFR > 60 Random Glucose 116 H (60-115) mg/dL Lactic Acid 0.5 (0.5-2.0) mmol/L Calcium 8.5 D (8.4-10.2) mg/dL Magnesium 2.0 (1.6-2.6) mg/dL Total Bilirubin 1.3 H (0.0-1.0) mg/dL Direct Bilirubin 0.3 (0.0-0.5) mg/dL AST 11 (5-31) U/L ALT 11 (0-31) U/L Alkaline Phosphatase 70 (39-117) U/L Troponin I High Sens (<3.5-17.0) ng/L Total Protein 6.4 L (6.5-8.0) g/dL Albumin 4.0 (3.5-5.0) g/dL Influenza Type A (PCR) (Negative) Influenza Type B (PCR) (Negative) RSV RNA Qual (PCR) (Negative) SARS-CoV-2 RNA (RT-PCR) (Negative) 08/13/22 08/13/22 Range/Units 13:53 13:53 WBC (4.8-10.8) X10*3/uL RBC (4.20-5.50) X10*6/uL Hgb (12.0-16.0) g/dl Hct (37.0-47.0) % MCV (80.0-98.0) fL MCH (27.0-33.0) pg MCHC (31.0-35.0) g/dl RDW (11.0-16.0) % Plt Count (160-400) X10*3/uL MPV (9.4-12.3) fL Immature Gran % (Auto) (0.0-0.4) % Neut % (Auto) (45-73) % Lymph % (Auto) (20-40) % [place] % (Auto) (2-11) % Eos % (Auto) (0-4) % Baso % (Auto) (0-2) % Lymph # (Auto) (1.2-4.9) X10*3/uL [place] # (Auto) (0.1-1.2) X10*3/uL Eos # (Auto) (0.0-0.4) X10*3/uL Baso # (Auto) (0.0-0.2) X10*3/uL Abs Immat Gran (auto) (0.00-0.03) X10*3/uL Absolute Neuts (auto) (2.0-8.3) x10*3/uL Absolute Nucleated RBC (0.0-0.012) X10*3/uL Nucleated RBC % (auto) (0.0-0.2) /100WBC Sodium (135-145) mmol/L Potassium (3.3-5.1) mmol/L Chloride (96-108) mmol/L Carbon Dioxide (22-29) mmol/L Anion Gap (12-20) BUN (9-16) mg/dL Creatinine (0.5-1.4) mg/dL Estim Creat Clear Calc Estimated GFR Random Glucose (60-115) mg/dL Lactic Acid (0.5-2.0) mmol/L Calcium (8.4-10.2) mg/dL Magnesium (1.6-2.6) mg/dL Total Bilirubin (0.0-1.0) mg/dL Direct Bilirubin (0.0-0.5) mg/dL AST (5-31) U/L ALT (0-31) U/L Alkaline Phosphatase (39-117) U/L Troponin I High Sens < 3.5 (<3.5-17.0) ng/L Total Protein (6.5-8.0) g/dL Albumin (3.5-5.0) g/dL Influenza Type A (PCR) NEGATIVE (Negative) Influenza Type B (PCR) NEGATIVE (Negative) RSV RNA Qual (PCR) NEGATIVE (Negative) SARS-CoV-2 RNA (RT-PCR) NEGATIVE (Negative) <PAIGE Rodriguez - Last Filed: 08/13/22 13:25> Lab Results 08/13/22 08/13/22 08/13/22 Range/Units 13:53 13:53 13:53 WBC 17.0 H (4.8-10.8) X10*3/uL RBC 4.44 (4.20-5.50) X10*6/uL Hgb 12.1 (12.0-16.0) g/dl Hct 36.7 L (37.0-47.0) % MCV 82.7 (80.0-98.0) fL MCH 27.3 (27.0-33.0) pg MCHC 33.0 (31.0-35.0) g/dl RDW 12.3 (11.0-16.0) % Plt Count 437 H (160-400) X10*3/uL MPV 10.0 (9.4-12.3) fL Immature Gran % (Auto) 0.4 (0.0-0.4) % Neut % (Auto) 83.1 H (45-73) % Lymph % (Auto) 8.8 L (20-40) % [place] % (Auto) 7.4 (2-11) % Eos % (Auto) 0.1 (0-4) % Baso % (Auto) 0.2 (0-2) % Lymph # (Auto) 1.5 (1.2-4.9) X10*3/uL [place] # (Auto) 1.3 H (0.1-1.2) X10*3/uL Eos # (Auto) 0.0 (0.0-0.4) X10*3/uL Baso # (Auto) 0.0 (0.0-0.2) X10*3/uL Abs Immat Gran (auto) 0.07 H (0.00-0.03) X10*3/uL Absolute Neuts (auto) 14.1 H (2.0-8.3) x10*3/uL Absolute Nucleated RBC 0.000 (0.0-0.012) X10*3/uL Nucleated RBC % (auto) 0.0 (0.0-0.2) /100WBC Sodium 136 (135-145) mmol/L Potassium 3.7 (3.3-5.1) mmol/L Chloride 100 (96-108) mmol/L Carbon Dioxide 28 (22-29) mmol/L Anion Gap 12 (12-20) BUN 10 (9-16) mg/dL Creatinine 0.65 (0.5-1.4) mg/dL Estim Creat Clear Calc 92.5 Estimated GFR > 60 Random Glucose 116 H (60-115) mg/dL Lactic Acid 0.5 (0.5-2.0) mmol/L Calcium 8.5 D (8.4-10.2) mg/dL Magnesium 2.0 (1.6-2.6) mg/dL Total Bilirubin 1.3 H (0.0-1.0) mg/dL Direct Bilirubin 0.3 (0.0-0.5) mg/dL AST 11 (5-31) U/L ALT 11 (0-31) U/L Alkaline Phosphatase 70 (39-117) U/L Troponin I High Sens (<3.5-17.0) ng/L Total Protein 6.4 L (6.5-8.0) g/dL Albumin 4.0 (3.5-5.0) g/dL Influenza Type A (PCR) (Negative) Influenza Type B (PCR) (Negative) RSV RNA Qual (PCR) (Negative) SARS-CoV-2 RNA (RT-PCR) (Negative) 08/13/22 08/13/22 Range/Units 13:53 13:53 WBC (4.8-10.8) X10*3/uL RBC (4.20-5.50) X10*6/uL Hgb (12.0-16.0) g/dl Hct (37.0-47.0) % MCV (80.0-98.0) fL MCH (27.0-33.0) pg MCHC (31.0-35.0) g/dl RDW (11.0-16.0) % Plt Count (160-400) X10*3/uL MPV (9.4-12.3) fL Immature Gran % (Auto) (0.0-0.4) % Neut % (Auto) (45-73) % Lymph % (Auto) (20-40) % [place] % (Auto) (2-11) % Eos % (Auto) (0-4) % Baso % (Auto) (0-2) % Lymph # (Auto) (1.2-4.9) X10*3/uL [place] # (Auto) (0.1-1.2) X10*3/uL Eos # (Auto) (0.0-0.4) X10*3/uL Baso # (Auto) (0.0-0.2) X10*3/uL Abs Immat Gran (auto) (0.00-0.03) X10*3/uL Absolute Neuts (auto) (2.0-8.3) x10*3/uL Absolute Nucleated RBC (0.0-0.012) X10*3/uL Nucleated RBC % (auto) (0.0-0.2) /100WBC Sodium (135-145) mmol/L Potassium (3.3-5.1) mmol/L Chloride (96-108) mmol/L Carbon Dioxide (22-29) mmol/L Anion Gap (12-20) BUN (9-16) mg/dL Creatinine (0.5-1.4) mg/dL Estim Creat Clear Calc Estimated GFR Random Glucose (60-115) mg/dL Lactic Acid (0.5-2.0) mmol/L Calcium (8.4-10.2) mg/dL Magnesium (1.6-2.6) mg/dL Total Bilirubin (0.0-1.0) mg/dL Direct Bilirubin (0.0-0.5) mg/dL AST (5-31) U/L ALT (0-31) U/L Alkaline Phosphatase (39-117) U/L Troponin I High Sens < 3.5 (<3.5-17.0) ng/L Total Protein (6.5-8.0) g/dL Albumin (3.5-5.0) g/dL Influenza Type A (PCR) NEGATIVE (Negative) Influenza Type B (PCR) NEGATIVE (Negative) RSV RNA Qual (PCR) NEGATIVE (Negative) SARS-CoV-2 RNA (RT-PCR) NEGATIVE (Negative) <Anali Ho, PA - Last Filed: 08/13/22 17:11> Independent Interpretation I performed an independent interpretation of an: EKG <PAIGE Dumont Last Filed: 08/13/22 17:11> Interpretation: Vent. Rate: 117 BPM ? ? Atrial Rate: 117 BPM P-R Int: 136 ms? QRS Dur: 076 ms QT Int: 314 ms ? ? ? P-R-T Axes: 070 074 -12 degrees QTc Int: 438 ms ? Sinus tachycardia ST & T wave abnormality, consider inferior ischemia Abnormal ECG When compared with ECG of 02-JUN-2022 18:38, No significant change was found DD/ 1344 <PAIGE Dumont - Last Filed: 08/13/22 17:11> Radiology Impression Radiologist Impression: My interpretation is in agreement with the radiologist's impression of th is imaging study. EXAMINATION: XR CHEST CLINICAL INFORMATION: Fall COMPARISON: 06/02/2022 TECHNIQUE: 2 views of the chest were obtained. FINDINGS: The lungs are well expanded. There is increased right middle lobe consolidation. No pleural effusion or pneumothorax. The cardiomediastinal silhouette is normal in size. No acute osseous abnormality. XR/XR chest 2V IMPRESSION: Increased right middle lobe consolidation which could represent atelectasis or pneumonia. Dictated By: Ron Frye MD Signed By: Electronically signed by Ron Frye MD 08/13/22 1447 <PAIGE Dumont Last Filed: 08/13/22 17:11> Discharge Plan Discharge Clinical Impression: Pneumonia <PAIGE Rodriguez - Last Filed: 08/13/22 13:25> Patient Disposition: Home, Self-Care <PAIGE Rodriguez - Last Filed: 08/13/22 13:25> Instructions: Pneumonia (ED) <PAIGE Rodriguez - Last Filed: 08/13/22 13:25> Additional Instructions: Follow up with your primary care provider. Return to the emergency department immediately if your symptoms worsen or if you develop any dizziness, shortness of breath, difficulty breathing, chest pain, blurry vision, loss of vision, nausea, vomiting, abdominal pain, fever, chills, back pain, or any other complaints. <PAIGE Rodriguez Last Filed: 08/13/22 13:25> Prescriptions: New levofloxacin 750 mg tablet 750 mg PO DAILY 7 Days Qty: 7 0RF No Action levofloxacin 750 mg tablet 750 mg PO DAILY Qty: 7 0RF <PAIGE Rodriguez - Last Filed: 08/13/22 13:25> Referrals: [facility] [place] Family Medicine [Provider Group] (Call to establish and follow up with a primary care provider. If you already have a primary care provider, please follow up with them.) [facility] [place] Primary Care, [place] [Provider Group] (Call to establish and follow up with a primary care provider. If you already have a primary care provider, please follow up with them.) [facility] [place] Primary Care,Francisco [Provider Group] (Call to establish and follow up with a primary care provider. If you already have a primary care provider, please follow up with them.) <PAIGE Rodriguez - Last Filed: 08/13/22 13:25> Stand Alone Forms: Work/School Release <PAIGE Rodriguez - Last Filed: 08/13/22 13:25> Print Language: Telugu <PAIGE Rodriguez Last Filed: 08/13/22 13:25>
--- NOTE | 2022-08-13 13:23 | ECG_ITS ---
Test Reason : cp Blood Pressure : / mmHG Vent. Rate : 117 BPM Atrial Rate : 117 BPM P-R Int : 136 ms QRS Dur : 076 ms QT Int : 314 ms P-R-T Axes : 070 074 -12 degrees QTc Int : [address] & T wave abnormality, consider inferior ischemia Abnormal ECG When compared with ECG of 02-JUN-2022 18:38, No significant change was found Referred By: Miya Jacobo Electronically Signed By:Luiz Méndez
[2022-08-13 14:01] LABS: MANUAL DIFF FLAG NO
[2022-08-13 14:08] LABS: Basophils Percent Auto 0.2 % (0-2); Eosinophils Percent Auto 0.1 % (0-4); Hematocrit 36.7 % (37.0-47.0); Hemoglobin 12.1 g/dl (12.0-16.0); Imm Gran Abs Auto 0.07 X10*3/uL (0.00-0.03); Imm Gran Pct Auto 0.4 % (0.0-0.4); Lymphocytes Absolute Auto 1.5 X10*3/uL (1.2-4.9); Lymphocytes Percent Auto 8.8 % (20-40); Mean Corpuscular Hemoglobin 27.3 pg (27.0-33.0); Mean Corpuscular Volume 82.7 fL (80.0-98.0); Monocytes Absolute Auto 1.3 X10*3/uL (0.1-1.2); Monocytes Percent Auto 7.4 % (2-11); Neutrophils Absolute Auto 14.1 x10*3/uL (2.0-8.3); Neutrophils Percent Auto 83.1 % (45-73); Platelet Count 437 X10*3/uL (160-400); Red Blood Count 4.44 X10*6/uL (4.20-5.50); Red Cell Distribution Width 12.3 % (11.0-16.0)
[2022-08-13 14:15] LABS: Lactic Acid 0.5 mmol/L (0.5-2.0)
[2022-08-13 14:20] LABS: Alanine Aminotransferase 11 U/L (0-31); Alkaline Phosphatase 70 U/L (39-117); Anion Gap 12 (12-20); Aspartate Amino Transferase 11 U/L (5-31); Bilirubin Direct 0.3 mg/dL (0.0-0.5); Bilirubin Total 1.3 mg/dL (0.0-1.0); Blood Urea Nitrogen 10 mg/dL (9-16); Calcium 8.5 mg/dL (8.4-10.2); Carbon Dioxide 28 mmol/L (22-29); Chloride 100 mmol/L (96-108); Creatinine Clr Calc Pharmacy 92.5; Estimated Glomerular Filt Rate > 60; Glucose Random 116 mg/dL (60-115); Potassium 3.7 mmol/L (3.3-5.1); Sodium 136 mmol/L (135-145); Total Protein 6.4 g/dL (6.5-8.0)
[2022-08-13 14:28] LABS: Troponin-I High Sensitivity < 3.5 ng/L (<3.5-17.0)
[2022-08-13 14:44] LABS: Influenza A PCR NEGATIVE (Negative); Influenza B PCR NEGATIVE (Negative); Resp Syncy Virus RNA Qual PCR NEGATIVE (Negative); SARS COV2 PCR INHOUSE NEGATIVE (Negative)
[2022-08-13 15:43] VITALS: BP 105/71; PULSE 98; RESP 16; TEMP 37.3; O2SAT 100
[2022-08-13 15:44] VITALS: PULSE 101; O2SAT 99
[2022-08-13] MEDS: levoFLOXacin/D5W 750 MG/150 ML PIGGYBACK 100 MG IV (16:18)
[2022-08-13] MEDS: Acetaminophen 325 MG TABLET 650 MG PO (16:18)
--- NOTE | 2022-08-13 16:22 | PC.NURSE ---
pt a&ox3, vss, reporting 7/10 chest pain - worse with inspiration, pt medicated per provider order, discharge pending first dose of IV abx.
[2022-08-13 18:15] VITALS: BP 98/59; PULSE 93; RESP 18; TEMP 36.9; O2SAT 96
== END 2022-08-13 18:37 | disposition home or self-care (01) ==
PROVIDERS: Physician Assistant; Emergency Provider Emergency Medicine
DX: J18.9 Pneumonia, unspecified organism (principal); Z20.822 Contact with and (suspected) exposure to COVID-19; Z20.828 Contact with and (suspected) exposure to other viral communicable diseases
CPT/HCPCS: 0241U; 36415; 71046; 80048; 80076; 83605; 83735; 84484; 85025; 87040; 93005; 96365; 96366; 99283; 99284; 99285; J1956